=== PATIENT | male | born 1980 | race Caucasian/White ===

== ENCOUNTER 2018-03-07 05:45 | Day surgery (SDC) | payer OTHER ==
[~2018-03-07] VITALS: Ht 188 cm; Wt 95.2 kg
[~2018-03-07 05:45] MED LIST: CETIRIZINE HCL5 MG PO; CLARITIN-D 241 EACH; IBUPROFEN200 M1 PO; NORCO 10-325 T1 EACH PO; NORCO 5-325 TA1 EACH PO
[2018-03-07] MEDS ORDERED: FLONASE ALLERG9.9 ML NAS (06:02)
--- NOTE | 2018-03-07 08:42 | NUR ---
03/07/18 0842 Rufina Rios 0818 PT ARRIVED TO PACU REACTIVE, AND COUGHING. PT SITTING IN HIGH FOWLERS, RESP EVEN AND UNLABORED. PT POINTING AT MASKING. RN REMOVED MASK AND PT CONTINUES COUGHING. 0821 O2 DECREASED TO 92% ON RA, RN PLACED NC ON PT AT 4L. O2 INCREASED TO 100%. PT CONTINUES COUGHING, DENIES PAIN AND NAUSEA. 0833 PT SIPPING ON WATER AND AWAKE OFF AND ON. O2 DECREASED TO 2L VIA NC. O2 SAT 100% 0841 PT SLEEPING WITH MINIMAL COUGHING. PT CONTINTUES TO DENIE PAIN.
--- NOTE | 2018-03-07 09:07 | NUR ---
PT ARRIVES TO DS RM 10 WITH EYES CLOSED. PT IS EASILY AROUSED AND ANSWERS QUESTIONS. PT DENIES ANY PAIN OR NAUSEA AT THIS TIME. PT ARRIVES WITH WATER FROM RECOVERY, TOLERATES WELL. SCD'S APPLIED. PT PROVIDED CRACKERS. NO FURTHER C/O'S AT THIS TIME.
--- NOTE | 2018-03-07 09:56 | NUR ---
PT RESTING IN BED WITH EYES CLOSED, RR EVEN AND UNLABORED, SATING AT 97%. PT AWAKENS TO VOICE. PT COUGHING AND DRINKING WATER. PT DENIES ANY PAIN OR NAUSEA. CRACKERS TOLERATED WELL. DC CRITERIA MET.
--- NOTE | 2018-03-07 10:19 | NUR ---
[employer] OFF[employer] HELP PT GET DRESSED. DC INSTUCTIONS GIVEN IN PRESENCE OF PT AND 2 [employer] OFFICERS. PT NODS HEAD TO UNDERSTANDING INSTRUCTIONS. PT DC'S VIA WHEELCHAIR FROM DS RM 10. REPORT IS CALLED TO [employer] RN.
--- NOTE | 2018-03-12 11:08 | OR ---
[facility] [address] [place], [place] [address] Signed DATE OF OPERATION: 03/07/2018 SURGEON: Prem Langston MD PREOPERATIVE DIAGNOSIS: Loose bodies, right elbow x2. POSTOPERATIVE DIAGNOSIS: Loose bodies, right elbow x2. PROCEDURE(S) PERFORMED: Right elbow arthroscopy, removal of loose bodies x2. ANESTHESIA: General. SPECIMENS AND COMPLICATIONS: There were no specimens or complications. TOURNIQUET TIME: Tourniquet time was about 30 minutes. WHAT WAS DONE: The patient was taken to the operating room. After anesthesia was induced. The patient was placed in the prone position with a bolster under the right shoulder. The right upper extremity was then positioned, prepped and draped in a routine sterile fashion. The bony topography was outlined with a skin marking pen. We then used an 18-gauge needle on a 30 mL syringe to insufflate the elbow joint by penetrating to the triangle. We then made a standard anteromedial portal and introduced a dull trocar into the elbow joint. There was immediate back flow of a water and the arthroscope was assembled. A single loose body was identified over the radial capitellar joint. We made a lateral portal using transillumination and localization with a spinal needle. We then introduced a smaller grasper and we moved the smaller loose body. We then used a switching stick technique to move the arthroscopy portal to the lateral side and we could see the anteromedial loose body. We were able to gently free from some slightly attached fibrous tissue and then I grabbed it with a large grasper and delivered out of the elbow joint. The rest of the elbow joint was inspected, there were some degenerative changes over the radial capitellar joint, but otherwise the elbow was unremarkable. Electronically Signed By: PREM LANGSTON MD 03/12/18 1108 PATIENT NAME: RICARDO GARCIA OPERATIVE REPORT DATE OF : 82 REPORT #: [id number] PHYSICIAN: PREM LANGSTON MD PCP: RILEY ANAYA MD REPORT IS CONFIDENTIAL AND NOT TO BE RELEASED WITHOUT AUTHORIZATION [facility] [address] [place], [place] [address] Signed The elbow was irrigated and drained. The portals were closed and sterile dressing applied. The patient was awakened and taken to the recovery room, where he arrived in stable condition. Counts were correct and antibiotic protocols were followed. Prem Langston MD [facility]FB/MODL /[id number] Copies: ~ Electronically Signed By: PREM ALNGSTON MD 03/12/18 1108 PATIENT NAME: RICARDO GARCIA OPERATIVE REPORT DATE OF : 82 REPORT #: [id number] PHYSICIAN: PREM LANGSTON MD PCP: RILEY ANAYA MD REPORT IS CONFIDENTIAL AND NOT TO BE RELEASED WITHOUT AUTHORIZATION
== END 2018-03-07 10:15 | disposition home or self-care (01) ==
LOC: OPS 05:45 → DS 05:45 → OPS 06:45 → DS 06:45 → OPS 10:15
PROVIDERS: Orthopaedic Surgery
PROC: 0RCL4ZZ Extirpation of Matter from Right Elbow Joint, Percutaneous Endoscopic Approach (ICD-10-PCS; principal; 2018-03-07 06:45)
DX: M24.021 Loose body in right elbow (principal); M19.011 Primary osteoarthritis, right shoulder; J18.9 Pneumonia, unspecified organism; J40 Bronchitis, not specified as acute or chronic
CPT/HCPCS: 01740; 64415; 73070; 76942; J0330; J0690; J0735; J1100; J1885; J2250; J2405; J2704; J2765; J3010; J7120

== ENCOUNTER 2019-03-07 06:15 | Day surgery (SDC) | payer OTHER ==
[~2019-03-07] VITALS: Ht 188 cm; Wt 95.3 kg
[~2019-03-07 06:15] MED LIST changes: +FLONASE ALLERG9.9 ML NAS
[2019-03-07] MEDS ORDERED: TYLENOL325 M1 PO (06:42)
[2019-03-07] MEDS ORDERED: GARLIC1 EAC1 PO (06:42)
--- NOTE | 2019-03-07 09:35 | NUR ---
03/07/19 0935 Joana Emerson 0925 PT TO PACU SLEEPING NON AROUSABLE. ORAL AIRWAY IN PLACE.
[2019-03-07] MEDS ORDERED: IBUPROFEN600 MG PO (09:53)
[2019-03-07] MEDS ORDERED: TYLENOL325 MG PO (09:54)
[2019-03-07] MEDS ORDERED: HYDROCODON-ACE1 EA10 PO (09:54)
--- NOTE | 2019-03-07 10:48 | NUR ---
WAITING FOR PT TO RETURN FROM PACU. WILL FOLLOW NEEDED
--- NOTE | 2019-03-07 11:09 | NUR ---
1025- PT ARRIVES TO DS RM 10 FROM PACU AWAKE BUT DROWSY. PT RESP EVEN AND UNLABORED WITH SATS ABOVE 94% ON RA. PT DENIES NAUSEA AND RATES PAIN 2/10 AND COMFORTABLE. SCD'S IN PLACE, CALL LIGHT WITH [facility] [facility] AT BEDSIDE. PT PROVIDED ICED WATER AND PUDDING.
--- NOTE | 2019-03-07 11:34 | NUR ---
PT PROVIDED SECOND PUDDING AND ICED WATER REFILLED. PT CONT TO REST IN BED AND WATCH TV. PT RATES PAIN 3/10 AND IS COMFORTABLE, PT EDUCATED ABOUT PAIN. [employer] GU[facility]DS AT BEDSIDE. PT ENCOURAGED TO USE CALL LIGHT WITH URGE TO VOID.
--- NOTE | 2019-03-07 12:03 | NUR ---
1145- [facility], PT ABLE TO VOID 200 MLS TEA COLORED URINE WITH NO PROBLEM. PT DENIES ANY NAUSEA OR DIZZINESS WITH AMBULATION. PT BACK IN BED, IV REMOVED WITH NO PROBLEM. DC INSTUCTIONS GIVEN, ALL QUESTIONS ADDRESSED. PT DRESSES SELF WITH ASSISTANCE [facility]. PT DC'S FROM DS RM 10 VIA WC TO [facility] WITH TRANSPORT GUARDS. 1155- VERBAL REPORT CALLED TO NURSE TAPIA AT [facility].
--- NOTE | 2019-03-07 22:37 | OR ---
[facility] [address], [place] [address] Signed DATE OF OPERATION: 03/07/2019 SURGEON: Katherine Paredes MD PREOPERATIVE DIAGNOSES: 1. Left inguinal hernia. 2. Skin lesion of left small finger, uncertain behavior, 1.2 cm in size. POSTOPERATIVE DIAGNOSES: 1. Left inguinal hernia (indirect). 2. Skin lesion of uncertain behavior, left small finger 1.2 cm excision size. PROCEDURES PERFORMED: 1. Repair of left inguinal hernia with implantation of Prolene mesh, high ligation, and excision of sac. 2. Excision of left small finger 1.2 cm excision size skin lesion with primary closure. ANESTHESIA: General endotracheal; Yuval Casas CRNA and local 20 mL of 0.25% Marcaine without epinephrine. INDICATION: This 38-year-old white man is a prisoner at [facility] and referred by Dr. Riley Anaya with findings of a reducible left inguinal hernia. The patient is known to me from the past having undergone excision of a melanoma of his right chest in 2016 with sentinel lymph node biopsies. He remains free of disease in that regard. Additionally, he has a lesion on his left small finger on the radial aspect, which has been recalcitrant to any interventions. He is admitted at this time to undergo repair of left inguinal hernia and excision of the skin lesion of uncertain behavior of his left small finger. Risks of bleeding, infection, recurrence related to hernia repair were well understood and the risks of bleeding, infection, wound failure, and other unforeseen complications related to the small finger lesion excision also understood. FINDINGS: Left inguinal hernia was an indirect type. There was a relatively large hernia sac. High ligation excision of the sac was accomplished. Cord structures were normal. There is attenuation of the floor of the inguinal canal particular at the ring. Implantation Electronically Signed By: KATHERINE PAREDES MD 03/07/19 2237 PATIENT NAME: RICARDO GARCIA OPERATIVE REPORT DATE OF : 82 REPORT #: [id number] PHYSICIAN: KATHERINE PAREDES MD PCP: RILEY ANAYA MD REPORT IS CONFIDENTIAL AND NOT TO BE RELEASED WITHOUT AUTHORIZATION [facility] [address], [place] [address] Signed of Prolene mesh was undertaken in an underlay technique with good result. The skin lesion was excised completely with benefit of a finger tourniquet and primary closure was accomplished with 2-0 nylon suture. The finger splint was used to stabilize the area for wound healing. DESCRIPTION OF PROCEDURE: The patient was brought to the operating room, given a general endotracheal anesthetic. Preoperative antibiotic Ancef was given. Sequential compression device stockings used and heparin subcutaneously administered. The abdomen was clipped and prepared with chlorhexidine solution and draped sterilely. A small incision was made cephalad to the pubic tubercle on the left. Dissection carried through the skin with sharp dissection using a #15 blade and electrocautery. The external oblique was incised along its fibers revealing the underlying cord. The cord was mobilized from the inguinal canal and encircled with a Donnie drain. A bulky hernia sac was associated with the spermatic cord. The cremasteric muscle fibers were incised longitudinally allowing for dissection anterior on the cord and identification of a hernia sac which was then freed with blunt dissection from the remaining cord structures. With meticulous care, the hernia sac was dissected free from the cord structures all the way up to the neck as emanated from the peritoneal cavity. Once from the cord structures fully, hernia sac was incised and examination internally undertaken showing no sign of sliding component or other problem. The neck of the hernia sac was ligated with 2-0 silk sutures, two in total applied and amputation of the redundant sac was undertaken with electrocautery. The neck retreated to the properitoneal space. An Allis clamp was applied to the tendon of the transversus abdominis. There was attenuated tissue of the floor of the canal. Using electrocautery, the floor of the canal was incised with electrocautery and blunt dissection undertaken of the properitoneal fat. A segment of Prolene mesh was cut to an elliptical configuration and secured in an underlay technique with interrupted 2-0 Prolene suture. A defect was cut in the graft to accommodate the cord structures laterally. Care was taken to avoid encumbrance of regional nerves. 10 mL of 0.25% Marcaine with epinephrine was injected locally. The cord replaced into the canal and the external oblique reapproximated with running 2-0 Vicryl suture. Gaby's layer was reapproximated with interrupted 2-0 Vicryl as well. The skin was then closed with running subcuticular 3-0 Vicryl. Steri-Strips were applied as was a Mepilex, silver sponge dressing, and an OpSite. Additional local anesthetic was injected to the subcutaneous space prior to complete closure. The preparation was taken down and a new preparation undertaken of the left hand and wrist. This was accomplished fully. Sterile draping was undertaken. A Donnie drain was used to exsanguinate the small finger and the proximal portion secured with Electronically Signed By: KATHERINE PAREDES MD 03/07/19 2237 PATIENT NAME: RICARDO GARCIA OPERATIVE REPORT DATE OF : 82 REPORT #: [id number] PHYSICIAN: KATHERINE PAREDES MD PCP: RILEY ANAYA MD REPORT IS CONFIDENTIAL AND NOT TO BE RELEASED WITHOUT AUTHORIZATION [facility] [address], [place] [address] Signed hemostats providing a well exsanguinated small finger. Photograph was taken. Excision of the lesion was undertaken on the radial aspect in the midportion of the finger. Complete excision was undertaken in a bloodless field. Minimal cautery was used for the small vessels that were visible. The skin was freed medially and laterally, and using interrupted 2-0 nylon sutures, the wound sequentially closed. Consideration had been made for a palmar skin graft, but since primary closure could be accomplished, it is likely to be most appropriate under the circumstances. Once closed, a Xeroform gauze was applied as was a wraparound gauze. A metallic foam finger splint was fashioned to incorporate the small finger as well as the palmar aspect of the hand. A gauze dressing was then applied followed by an Branden wrap. The patient was allowed to emerge from anesthesia extubated and taken to recovery room in good condition having suffered no complications. Sponge, needle, and instrument count reported as correct x3. MD MELISSA Borrero/TRIPP /[id number] cc: Riley Anaya MD Copies: RILEY ANAYA MD ~ Electronically Signed By: KATHERINE PAREDES MD 03/07/19 2237 PATIENT NAME: RICARDO GARCIA OPERATIVE REPORT DATE OF : 82 REPORT #: [id number] PHYSICIAN: KATHERINE PAREDES MD PCP: RILEY ANAYA MD REPORT IS CONFIDENTIAL AND NOT TO BE RELEASED WITHOUT AUTHORIZATION
== END 2019-03-07 11:55 | disposition home or self-care (01) ==
LOC: DS 06:15
PROVIDERS: Surgery
PROC: 0YU60JZ Supplement Left Inguinal Region with Synthetic Substitute, Open Approach (ICD-10-PCS; principal; 2019-03-07 06:45)
PROC: 0HBGXZZ Excision of Left Hand Skin, External Approach (ICD-10-PCS; 2019-03-07 06:45)
DX: K40.90 Unilateral inguinal hernia, without obstruction or gangrene, not specified as recurrent (principal); B07.9 Viral wart, unspecified; Z79.899 Other long term (current) drug therapy; Z87.438 Personal history of other diseases of male genital organs; Z80.42 Family history of malignant neoplasm of prostate
CPT/HCPCS: 00830; C1781; J0690; J1100; J1644; J1885; J2250; J2704; J3010; J7120

== ENCOUNTER 2022-06-11 20:22 | Emergency (ER) | payer OTHER ==
[~2022-06-11] VITALS: Ht 188 cm; Wt 95.2 kg
[~2022-06-11 20:22] MED LIST changes: +ACETAMINOPHEN500 MG PO; +ASPIRIN81 MG PO; +GARLIC1 EAC1 PO; +HYDROCODON-ACE1 EA10 PO; +IBUPROFEN600 MG PO; +TYLENOL325 M1 PO; +TYLENOL325 MG PO
== END 2022-06-11 22:44 | disposition home or self-care (01) ==
LOC: ED 20:22
PROC: 0HQ0XZZ Repair Scalp Skin, External Approach (ICD-10-PCS; principal; 2022-06-11)
DX: S01.01XA Laceration without foreign body of scalp, initial encounter (principal); W21.05XA Struck by basketball, initial encounter
CPT/HCPCS: 12002; 72125; 99283-25